=== PATIENT | female | born 1995 | race American Indian/Alaskan Native ===

== ENCOUNTER 2020-06-03 21:20 | Emergency (ER) | payer SELFPAY ==
[2020-06-04 00:01] VITALS: BP 117/72
[2020-06-04 00:23] LABS: Basophils # (Auto) 0.1 K/mm3 (0.0-0.1); Eosinophils # (Auto) 0.1 K/mm3 (0.0-0.4); Eosinophils % (Auto) 1.3 % (0.0-4.3); Hematocrit 36.3 % (30.3-42.9); Hemoglobin 12.1 gm/dl (10.1-14.3); Lymphocytes # (Auto) 2.2 K/mm3 (1.2-5.4); Lymphocytes % (Auto) 37.7 % (13.4-35.0); Mean Corpuscular HGB Conc 33 % (30-34); Mean Corpuscular Volume 91 fl (79-97); Monocytes # (Auto) 0.6 K/mm3 (0.0-0.8); Monocytes % (Auto) 10.3 % (0.0-7.3); Platelet Count 303 K/mm3 (140-440); Red Blood Count 3.97 M/mm3 (3.65-5.03)
[2020-06-04 00:44] LABS: Alanine Aminotransferase 10 units/L (7-56); Blood Urea Nitrogen 7 mg/dL (7-17); Calcium 8.5 mg/dL (8.4-10.2); Hemolysis Index 8
[2020-06-04 00:50] LABS: BUN/Creatinine Ratio 12
[2020-06-04] MEDS ORDERED: LIDOCAINE-MPF (1%) 10 MG/1 ML VIAL 5 ML INFILTRATI ONE (00:59)
--- NOTE | 2020-06-04 01:36 | Emergency Department Report ---
ED Female HPI - General Chief complaint: Abdominal Pain Stated complaint: STOMACH PAIN Time Seen by Provider: 06/04/20 00:52 Source: patient Mode of arrival: Ambulatory Limitations: No Limitations - History of Present Illness Initial comments: 25-year-old -Citizen Of [place] female presents to the emergency room complaining of lower abdominal pressure for 3 days with vaginal discharge. Patient reports she has a new sexual partner and has not use protection. She admits to dysuria some urinary frequency but no urinary urgency. She denies any nausea no vomiting no diarrhea or constipation. She denies any chest pain or shortness of breath. She does admit to having a history of STD in the past. She recent delivered a baby 5 months ago. Her last menstrual period was 06/04/2020. She is 6 para to 5. MD Complaint: vaginal discharge, possible STD Onset/Timin -: days(s) Location: suprapubic Severity scale (0 -10): 2 Quality: burning Consistency: constant Improves with: none Worsens with: urination Are you Now?: No Last Menstrual Period: 06/04/20 EDC: 03/11/21 Associated Symptoms: vaginal bleeding, dysuria. denies: nausea/vomiting, fever/chills, loss of appetite, hematuria, shortness of breath, weakness - Related Data Sexually active: Yes : 6 Para: 5 Previous Rx's Medication Instructions Recorded Last Taken Type DOXYCYCLINE Hyclate [Vibramycin 100 mg PO Q12HR 10 Days #20 capsule 06/04/20 Unknown Rx CAP] Allergies Allergy/AdvReac Type Severity Reaction Status Date / Time No Known Allergies Allergy Verified 06/03/20 23:38 ED Review of Systems ROS: Stated complaint: STOMACH PAIN Other details as noted in HPI Comment: All other systems reviewed and negative ED Past Medical Hx - Past Medical History Previous Medical History?: No - Surgical History Past Surgical History?: No - Social History Smoking Status: Never Smoker Substance Use Type: Alcohol - Medications Home Medications: Home Medications Medication Instructions Recorded Confirmed Last Taken Type DOXYCYCLINE Hyclate [Vibramycin 100 mg PO Q12HR 10 Days #20 capsule 06/04/20 Unknown Rx CAP] ED Physical Exam - General Limitations: No Limitations General appearance: alert, in no apparent distress - Head Head exam: Present: atraumatic, normocephalic - Eye Eye exam: Present: normal appearance - ENT ENT exam: Present: normal exam - Neck Neck exam: Present: normal inspection, full ROM - Cardiovascular Cardiovascular Exam: Present: regular rate - GI/Abdominal GI/Abdominal exam: Present: soft. Absent: distended, tenderness - External exam: Present: bleeding Speculum exam: Present: vaginal bleeding Bi-manual exam: Present: normal bi-manual exam - Extremities Exam Extremities exam: Present: normal inspection, full ROM - Back Exam Back exam: Present: normal inspection - Neurological Exam Neurological exam: Present: alert, oriented X3, normal gait - Psychiatric Psychiatric exam: Present: normal affect, normal mood - Skin Skin exam: Present: warm, dry, intact, normal color. Absent: rash ED Course Vital Signs 06/03/20 23:38 Temperature 98.1 F Pulse Rate 58 L Respiratory 18 Rate Blood Pressure 117/72 O2 Sat by Pulse 100 Oximetry ED Medical Decision Making - Lab Data Result diagrams: 06/04/20 00:13 06/04/20 00:13 - Medical Decision Making 25-year-old -Citizen Of [place] female presents to the emergency room complaining of lower abdominal pressure for 3 days with vaginal discharge. Patient reports she has a new sexual partner and has not use protection. She admits to dysuria some urinary frequency but no urinary urgency. She denies any nausea no vomiting no diarrhea or constipation. She denies any chest pain or shortness of breath. She does admit to having a history of STD in the past. She recent delivered a baby 5 months ago. Her last menstrual period was 06/04/2020. She is 6 para to 5. Urinalysis wet prep chlamydia and gonorrhea sent out. Patient has been treated for gonorrhea both Rocephin 1 g IM. Prescription for doxycycline to cover for chlamydia. Wet prep pending results. Signcalin Casarez PA-C Critical care attestation.: If time is entered above; I have spent that time in minutes in the direct care of this critically ill patient, excluding procedure time. ED Disposition Clinical Impression: Vaginal discharge Disposition: - TO HOME OR SELFCARE Is pt being admited?: No Does the pt Need Aspirin: No Condition: Stable Instructions: Abdominal Pain (ED) Additional Instructions: Wet prep is negative for any trichomonas no yeast and no bacterial vaginosis. Urinalysis is negative for urinary tract infection. You have been treated for gonorrhea and a prescription for doxycycline.we will treat chlamydia. I recommend following up at the health department for full STD screen consisting of herpes hepatitis syphilis. Please refrain from intercourse until you have been evaluated by the health department. Prescriptions: DOXYCYCLINE Hyclate [Vibramycin CAP] 100 mg PO Q12HR 10 Days #20 capsule Referrals: PRIMARY CARE, [Primary Care Provider] - 3-5 Days [facility] [Outside] - 3-[address] [facility] [place] [Outside] - 3-5 Days
[2020-06-04 02:08] LABS: Bilirubin,Urine NEG (Negative); Blood,Urine MOD (Negative); Color,Urine Yellow (Yellow); Mucus,Urine 3+ /HPF
== END 2020-06-04 02:42 | disposition home or self-care (01) ==
LOC: ED 21:20
DX: N89.8 Other specified noninflammatory disorders of vagina (principal); R30.0 Dysuria; Z79.899 Other long term (current) drug therapy
CPT/HCPCS: 36415; 80053; 81001; 84703; 85025; 87210; 87591; 96372; 99284; J0696